=== PATIENT | female | born 1975 | race Caucasian/White ===

== ENCOUNTER 2017-06-05 15:05 | Emergency (ER) | payer SELFPAY ==
[~2017-06-05] VITALS: Ht 154.9 cm; Wt 55.8 kg
[2017-06-05 15:20] VITALS: BP 132/81
--- NOTE | 2017-06-05 17:08 | NUR ---
PT AMBULATES TO CHAIR D
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
--- NOTE | 2017-06-05 17:23 | NUR ---
Patient being evaluated by physician at bedside.
[2017-06-05] MEDS ORDERED: IBUPROFEN 800 MG TAB PO ONE (17:25)
[2017-06-05 18:48] VITALS: BP 130/80
--- NOTE | 2017-06-05 18:48 | NUR ---
Patient discharged with v/s stable. Written and verbal after care instructions given and explained. Patient verbalized understanding. Ambulatory with steady gait. All questions addressed prior to discharge. Advised to follow up with PMD.
== END 2017-06-05 18:48 | disposition home or self-care (01) ==
LOC: MED 15:05
DX: S80.02XA Contusion of left knee, initial encounter (principal); S20.212A Contusion of left front wall of thorax, initial encounter; M54.2 Cervicalgia; V43.52XA Car driver injured in collision with other type car in traffic accident, initial encounter; Y93.89 Activity, other specified; Y92.411 Interstate highway as the place of occurrence of the external cause; Y99.8 Other external cause status
CPT/HCPCS: 71045; 72050; 73562; 99284